=== PATIENT | male | born 1965 | race Two or more races ===

== ENCOUNTER → 2025-01-26 | Outpatient (CLI) | payer BC, SELFPAY ==
--- NOTE | 2025-01-26 15:15 | XR_ITS ---
Examination: PA lateral chest 2 views TECHNIQUE: Upright PA lateral chest 2 views Exam date and time: January 26, 2025 1418 hours INDICATIONS: Coughing one week. FINDINGS: Mild hyperexpansion Normal heart size No pneumonia or pulmonary edema IMPRESSION: No pneumonia or pulmonary edema
== END | disposition home or self-care (01) ==
PROVIDERS: PCP Physician Assistant; Referring Provider Physician Assistant; Visit Provider Physician Assistant
DX: R05.9 Cough, unspecified (principal)
CPT/HCPCS: 71046

== ENCOUNTER → 2025-06-30 | Outpatient (CLI) | payer BC, SELFPAY ==
--- NOTE | 2025-06-30 09:37 | XR_ITS ---
Examination: Abdomen sonogram, complete Date and time of exam: June 30, 2025, 10:00 a.m. INDICATIONS: Elevated liver enzymes on laboratory examination performed 1 month ago. Technique: Multiple real-time grayscale transabdominal sonographic images of the abdomen have been obtained. Findings: Normal gallbladder. Normal common bile duct 0.3 cm Pancreatic head 2.6 cm Aorta not enlarged. Liver 23 cm fatty infiltration Normal hepatopetal portal venous Patent IVC Right kidney 11.6 cm renal cortex 1.4 cm Left kidney 12.1 cm renal cortex 2.2 cm Spleen 13.1 cm IMPRESSION: Hepatosplenomegaly Fatty infiltration throughout the liver no focal liver lesions
== END | disposition home or self-care (01) ==
LOC: CDIM 09:22
PROVIDERS: PCP Family Medicine; Referring Provider Physician Assistant; Visit Provider Physician Assistant
DX: R16.2 Hepatomegaly with splenomegaly, not elsewhere classified (principal); K76.0 Fatty (change of) liver, not elsewhere classified
CPT/HCPCS: 76700

== ENCOUNTER → 2025-07-21 | Outpatient (CLI) | payer BC, SELFPAY ==
[2025-07-21 08:09] LABS: Collection Type, Urine Clean Catch; Squamous Epithelial Cell,Urine 0 /hpf (0-5)
[2025-07-21 08:33] LABS: Basophils # (Auto) 0.0 Thou/mm3 (0.0-0.2); Basophils % (Auto) 0 % (0-2.5); Eosinophils # (Auto) 0.1 Thou/mm3 (0.0-0.5); Eosinophils % (Auto) 1 % (0-10); Hematocrit 40.5 % (41.0-53.0); Hemoglobin 14.1 g/dL (13.5-16.0); Immature Granulocytes Auto 0.01 Thou/mm3 (0.00-0.00); Lymphocytes # (Auto) 1.9 Thou/mm3 (1.0-4.8); Lymphocytes % (Auto) 29 % (10-50); Mean Corpuscular HGB Conc 34.8 g/dl (31.0-37.0); Mean Corpuscular Hemoglobin 31.2 pg (25.0-35.0); Mean Corpuscular Volume 90 fL (80-100); Monocytes # (Auto) 0.6 Thou/mm3 (0.0-0.8); Monocytes % (Auto) 9 % (0-12); Neutrophils # (Auto) 4.1 Thou/mm3 (1.8-7.7); Neutrophils % (Auto) 62 % (37-80); Nucleated Red Blood Cell # 0.00 Thou/mm3 (0.00-0.00); Nucleated Red Blood Cell % 0 /100 WBC (0); Platelet Count 339 Thou/mm3 (140-440); RDW Standard Deviation 40.7 fL (35.1-43.9); Red Blood Count 4.52 Miln/mm3 (4.50-5.90); White Blood Count 6.7 Thou/mm3 (3.8-10.6)
[2025-07-21 08:44] LABS: Bilirubin,Urine Negative (Negative); Blood,Urine Negative (Negative); Clarity,Urine Clear (Clear/Hazy); Color,Urine Lt-Yellow (Lt Yel-Yel); Culture Indicated,Urine Not Indicated; Glucose, Urine Negative (Negative); Ketones,Urine Negative (Negative); Leukocyte Esterase,Urine Negative (Negative); Nitrite,Urine Negative (Negative); PH,Urine 6.5 (5.0-7.0); Protein,Urine Negative (Neg - Trace); RBC,Urine 2 /hpf (0-3); Specific Gravity,Urine 1.023 (1.001-1.035); Urobilinogen,Urine Negative mg/dL (0.0-1.0); WBC,Urine 1 /hpf (0-5)
[2025-07-21 08:50] LABS: Glucose Estimated Average 212 mg/dL (80-131); Hemoglobin A1C 9.0 % Hgb (4.8-6.0)
[2025-07-21 08:52] LABS: Creatinine MALB Rnd Ur 131 mg/dL (30-125); Microalbumin Creat Ratio 2 mg/gCrea (<30); Microalbumin, Random Urine 3 mg/L (0-300)
[2025-07-21 09:09] LABS: Alanine Aminotransferase 78 U/L (10-49); Albumin, Serum 4.8 gm/dL (3.4-4.8); Albumin/Globulin Ratio 2.5 (1.2-2.2); Alkaline Phosphatase 72 U/L (46-116); Anion Gap 10 (7-16); Aspartate Amino Transferase 32 U/L (0-34); BUN/Creatinine Ratio 16 Ratio (12-20); Bilirubin,Total 0.8 mg/dL (0.3-1.2); Blood Urea Nitrogen 13 mg/dL (9-23); Calcium 9.6 mg/dL (8.3-10.6); Calcium (Corrected) 9.6 mg/dL (8.5-10.1); Carbon Dioxide 28.1 mMol/L (20.0-31.0); Cardiac Risk Estimate 4.9 RATIO (4.0-6.7); Chloride 105 mMol/L (98-107); Cholesterol 194 mg/dL (132-200); Creatinine (Component) 0.8 mg/dL (0.6-1.3); Ferritin 184 ng/mL (10.5-307.3); Globulin 1.9 gm/dL (2.3-3.5); Glucose 120 mg/dL (74-106); HDL Cholesterol 40 mg/dL (40-60); Iron 112 mcg/dL (65-175); LDL Cholesterol,Calculated 138 mg/dL (0-130); Osmolality,Calculated 286 (275-295); Potassium 4.4 mMol/L (3.4-5.1); Prostate Specific Antigen 0.41 ng/mL (0-4.00); Sodium 143 mMol/L (136-145); Thyroid Stimulating Hormone 0.73 uIU/mL (0.55-4.78); Total Protein 6.7 gm/dL (5.7-8.2); Triglycerides 79 mg/dL (30-150); eGFR > 60 See Note
[2025-07-21 09:55] LABS: AFP Non-Pregnant 2.60 ng/mL (<8.10); Hepatitis A Antibody IgM Non Reactive (Non React); Hepatitis B Core Antibody IgM Non Reactive (Non React); Hepatitis B Surface Antigen Non Reactive (Non React); Hepatitis C Antibody Non Reactive (Non React); Vitamin B12 419 pg/mL (211-911); Vitamin D 25 Hydroxy Total 30.0 ng/mL (7.3-40.2)
[2025-07-27 06:36] LABS: ANA Screen, IFA NEGATIVE (NEGATIVE)
== END | disposition home or self-care (01) ==
PROVIDERS: PCP Family Medicine; Referring Provider Physician Assistant; Visit Provider Physician Assistant
DX: I10 Essential (primary) hypertension (principal); E78.5 Hyperlipidemia, unspecified; E11.65 Type 2 diabetes mellitus with hyperglycemia; R94.5 Abnormal results of liver function studies; E55.9 Vitamin D deficiency, unspecified; Z12.5 Encounter for screening for malignant neoplasm of prostate
CPT/HCPCS: 36415; 80053; 80061; 80074; 81001; 82043; 82105; 82306; 82570; 82607; 82728; 83036; 83540; 84153; 84443; 85025; 86038

== ENCOUNTER → 2025-07-22 | Outpatient (CLI) | payer BC, SELFPAY ==
[2025-07-27 06:34] LABS: Fecal Globin Result NOT DETECTED (NOT DETECTED)
== END | disposition home or self-care (01) ==
LOC: SLDO 09:13
PROVIDERS: Referring Provider Physician Assistant; Visit Provider Physician Assistant
DX: Z12.11 Encounter for screening for malignant neoplasm of colon (principal); I10 Essential (primary) hypertension; E78.5 Hyperlipidemia, unspecified; E11.65 Type 2 diabetes mellitus with hyperglycemia; R94.5 Abnormal results of liver function studies; E55.9 Vitamin D deficiency, unspecified
CPT/HCPCS: 82274; G0328